=== PATIENT | male | born 1980 | race Two or more races ===

== ENCOUNTER 2022-01-10 14:05 | Outpatient (CLI) | payer OTHER | END 2022-01-10 14:15 | disposition home or self-care (01) | LOC: PPH VACUNA 14:05 | PROVIDERS: ATTEND Emergency Medicine Pediatric Emergency Medicine | DX: Z23 Encounter for immunization (principal) ==

== ENCOUNTER 2025-01-12 07:16 | Emergency (ER) | payer OTHER ==
[~2025-01-12] VITALS: Ht 177.8 cm; Wt 199.6 kg
[2025-01-12] MEDS ORDERED: KETOROLAC TROMETHAMINE 60 MG VIAL IM ONE (09:45)
[2025-01-12] MEDS ORDERED: ORPHENADRINE CITRATE 30 MG/ML AMPUL IM ONE (09:45)
== END 2025-01-12 12:00 ==
LOC: ER 07:16
DX: M54.50 Low back pain, unspecified (principal)